=== PATIENT | male | born 2000 | race Caucasian/White ===

== ENCOUNTER → 2024-06-13 | Outpatient (CLI) | payer BC | LOC: M RAD 13:51 | PROVIDERS: ATTEND Physician Assistant Medical | DX: M79.641 Pain in right hand (principal); M79.642 Pain in left hand; W19.XXXA Unspecified fall, initial encounter ==

== ENCOUNTER 2025-04-20 04:43 | Emergency (ER) | payer BC ==
[~2025-04-20] VITALS: Ht 172.7 cm; Wt 82.7 kg
[2025-04-20] MEDS ORDERED: INSU100V6 SQ (04:57)
[2025-04-20 06:57] VITALS: TEMP 97.7
[2025-04-20] MEDS ORDERED: PRED20TA PO (08:32)
[2025-04-20] MEDS ORDERED: AMOX875T2 PO (08:32)
[2025-04-20 08:40] VITALS: BP 156/96; O2SAT 97
== END 2025-04-20 08:42 | disposition home or self-care (01) ==
LOC: M ED 04:43
DX: H66.93 Otitis media, unspecified, bilateral (principal); E10.9 Type 1 diabetes mellitus without complications; Z20.828 Contact with and (suspected) exposure to other viral communicable diseases